=== PATIENT | female | born 1995 | race Caucasian/White ===

== ENCOUNTER 2019-03-10 20:16 | Emergency (ER) | payer OTHER ==
[~2019-03-10] VITALS: Ht 180.3 cm; Wt 142.9 kg
[~2019-03-10 20:16] MED LIST: COLACE100 MG PO; FEOSOL325 M1 PO; IBUPROFEN 600600 M1 PO; TRINATE TABLET1 TAB PO
[2019-03-11] MEDS ORDERED: NAPROSYN500 MG PO (00:02)
[2019-03-11] MEDS ORDERED: NORFLEX100 MG PO (00:02)
[2019-03-11 00:29] VITALS: BP 139/91
== END 2019-03-11 00:30 | disposition home or self-care (01) ==
LOC: ER 20:16
DX: S13.4XXA Sprain of ligaments of cervical spine, initial encounter (principal); G44.209 Tension-type headache, unspecified, not intractable; V89.2XXA Person injured in unspecified motor-vehicle accident, traffic, initial encounter; Y93.I9 Activity, other involving external motion; Y92.410 Unspecified street and highway as the place of occurrence of the external cause; Y99.8 Other external cause status

== ENCOUNTER 2020-08-06 18:59 | Emergency (ER) | payer OTHER ==
[~2020-08-06] VITALS: Ht 180.3 cm; Wt 117.9 kg
[~2020-08-06 18:59] MED LIST changes: +NAPROSYN500 MG PO; +NORFLEX100 MG PO
[2020-08-06] MEDS ORDERED: DOXYCYCLINE 10100 MG PO (19:42)
[2020-08-06 19:48] VITALS: BP 158/92
== END 2020-08-06 19:49 | disposition home or self-care (01) ==
LOC: ER 18:59
DX: S70.362A Insect bite (nonvenomous), left thigh, initial encounter (principal); L03.116 Cellulitis of left lower limb; L02.416 Cutaneous abscess of left lower limb; W57.XXXA Bitten or stung by nonvenomous insect and other nonvenomous arthropods, initial encounter; Y93.89 Activity, other specified; Y92.89 Other specified places as the place of occurrence of the external cause; Y99.8 Other external cause status

== ENCOUNTER 2020-08-08 21:50 | Emergency (ER) | payer OTHER ==
[~2020-08-08] VITALS: Ht 180.3 cm; Wt 117.9 kg
[~2020-08-08 21:50] MED LIST changes: +DOXYCYCLINE 10100 MG PO
[2020-08-09 00:33] VITALS: BP 144/92
== END 2020-08-09 00:35 | disposition home or self-care (01) ==
LOC: ER 21:50
DX: L02.416 Cutaneous abscess of left lower limb (principal); Z79.2 Long term (current) use of antibiotics; R11.0 Nausea; R50.9 Fever, unspecified

== ENCOUNTER 2021-05-31 21:24 | Emergency (ER) | payer OTHER ==
[~2021-05-31] VITALS: Ht 177.8 cm; Wt 136.1 kg
[2021-05-31] MEDS ORDERED: ZANAFLEX4 MG PO (23:35)
[2021-05-31] MEDS ORDERED: NAPROSYN500 MG PO (23:35)
[2021-05-31 23:48] VITALS: BP 145/87
== END 2021-05-31 23:50 | disposition home or self-care (01) ==
LOC: ER 21:24
DX: S39.012A Strain of muscle, fascia and tendon of lower back, initial encounter (principal); Z79.2 Long term (current) use of antibiotics; Z79.899 Other long term (current) drug therapy; V43.02XA Car driver injured in collision with other type car in nontraffic accident, initial encounter; Y93.89 Activity, other specified; Y92.89 Other specified places as the place of occurrence of the external cause; Y99.8 Other external cause status